=== PATIENT | male | born 1970 | race African-American/Black ===

== ENCOUNTER 2020-12-15 12:30 | Emergency (ER) | payer MEDICAID ==
[~2020-12-15] VITALS: Ht 180.3 cm; Wt 89.0 kg
[2020-12-15 14:28] VITALS: BP 155/97
== END 2020-12-15 14:29 | disposition home or self-care (01) ==
LOC: ER 12:30
DX: Z53.21 Procedure and treatment not carried out due to patient leaving prior to being seen by health care provider (principal)